=== PATIENT | male | born 2000 | race Caucasian/White ===

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

== ENCOUNTER 2024-04-05 20:34 | Emergency (ER) | payer MEDICAID, OTHER ==
[~2024-04-05] VITALS: Ht 162.6 cm; Wt 47.6 kg
[~2024-04-05 20:34] MED LIST: IBUP-1971 PO
[2024-04-05 20:40] VITALS: BP_SYST 134; PULSE 98; RESP 17; TEMP 99.1; O2SAT 98
[2024-04-05 21:21] LABS: COVID19 ANTIGEN SOFIA FIA NEGATIVE (NEGATIVE)
[2024-04-05 21:22] LABS: INFLUENZA TYPE A Negative (NEGATIVE); INFLUENZA TYPE B NEGATIVE (NEGATIVE)
[2024-04-05 21:23] LABS: STREPTOCOCCUS A SCREEN (RAPID) NEGATIVE (NEGATIVE)
[2024-04-05] MEDS ORDERED: IBUP-1969 PO (22:16)
[2024-04-05 22:27] VITALS: BP_SYST 134; PULSE 98; RESP 17; TEMP 98; O2SAT 98
== END 2024-04-05 22:27 | disposition home or self-care (01) ==
LOC: SED 20:34
DX: J02.8 Acute pharyngitis due to other specified organisms (principal); B97.89 Other viral agents as the cause of diseases classified elsewhere; Z20.822 Contact with and (suspected) exposure to COVID-19
CPT/HCPCS: 36415; 86403; 87081; 99283

== ENCOUNTER 2024-04-07 00:44 | Emergency (ER) | payer OTHER ==
[~2024-04-07] VITALS: Ht 162.6 cm; Wt 47.6 kg
[~2024-04-07 00:44] MED LIST changes: +IBUP-1969 PO
[2024-04-07 00:52] VITALS: BP_SYST 127; PULSE 76; RESP 16; O2SAT 99
[2024-04-07] MEDS ORDERED: TOLN108P2 TP (01:19)
== END 2024-04-07 01:29 | disposition home or self-care (01) ==
LOC: SED 00:44
DX: B35.3 Tinea pedis (principal); Z79.899 Other long term (current) drug therapy
CPT/HCPCS: 99282